=== PATIENT | female | born 1970 | race African-American/Black ===

== ENCOUNTER 2017-08-01 09:52 | Outpatient (CLI) | payer OTHER, SELFPAY ==
[2017-08-01 10:30] LABS: #Lymphocytes 2.2 thou/uL (1.20-3.40); #Monocytes 0.3 thou/uL (0.11-0.59); #Neutrophils 3.8 thou/uL (1.40-6.50); %Basophils 0.6 % (0.0-1.0); %Eosinophils 0.5 % (0.0-10.0); %Lymphocytes 34.3 % (21.0-51.0); %Monocytes 4.9 % (0.0-10.0); %Neutrophils 59.7 % (42.0-75.0); Hemoglobin 10.2 g/dL (12.0-16.0); Mean Corpuscular HGB CONC 31.6 g/dL (32.0-36.0); Mean Corpuscular Hemoglobin 24.7 pg (27.0-31.0); Mean Corpuscular Volume 78.2 fl (81.0-99.0); Mean Platelet Volume 10.5 fL (7.4-10.4); Platelet Count 163 thou/uL (130-400); RBC Distribution Width 14.6 % (11.5-14.5); Red Blood Cell (RBC) Count 4.14 mill/uL (4.20-5.40); White Blood Cell (WBC) Count 6.3 thou/uL (4.8-10.8)
[2017-08-01 10:46] LABS: Anion Gap 10 mmol/L (10-20); BUN (Urea Nitrogen) 10 mg/dL (7.0-18.7); Calc. Creatinine Clearance 0 mL/min (70-130); Calcium 9.3 mg/dL (7.8-10.44); Carbon Dioxide 25 mmol/L (22-29); Chloride 107 mmol/L (98-107); Estimated GFR-MDRD Greater than 90; Glucose 96 mg/dL (70-105); Potassium 3.8 mmol/L (3.5-5.1); Sodium 138 mmol/L (136-145)
== END 2017-08-01 09:53 | disposition home or self-care (01) ==
LOC: LABBT 09:52
PROVIDERS: ATTEND Surgery
DX: Z01.812 Encounter for preprocedural laboratory examination (principal); R22.2 Localized swelling, mass and lump, trunk
CPT/HCPCS: 80048; 85025

== ENCOUNTER 2017-08-03 06:53 | Day surgery (SDC) | payer OTHER ==
[2017-08-01 10:19] VITALS: BMI 33.0
[2017-08-03] MEDS ORDERED: Ketorolac Tromethamine 30 MG/ML VIAL ONE (07:59)
[2017-08-03] MEDS ORDERED: Bupivacaine 0.25% HCL 30 ML VIAL ONE (09:24)
[2017-08-03] MEDS ORDERED: Lidocaine 2% w/Epinephrine 1:200K 20 ML VIAL ONE (09:24)
[2017-08-03] MEDS ORDERED: Fentanyl 100 MCG/2 ML VIAL ONE ×2 (09:26→10:29)
[2017-08-03] MEDS ORDERED: Glycopyrrolate 0.2 MG/ML 5 ML SYRINGE ONE (16:13)
[2017-08-03] MEDS ORDERED: Lidocaine 1% PF 5 ML VIAL ONE (16:13)
[2017-08-03] MEDS ORDERED: PHENYLEPHRINE-NS 100 MCG/ML 10 ML SYRINGE ONE (16:13)
[2017-08-03] MEDS ORDERED: Ondansetron HCl/PF 4 MG/2 ML Vial ONE (16:13)
[2017-08-03] MEDS ORDERED: PROPOFOL 200 MG/20 ML VIAL ONE (16:13)
[2017-08-03] MEDS ORDERED: ePHEDrine/0.9% NaCl/PF SYRINGE 50 mg/10 ml ONE (16:13)
--- NOTE | 2017-08-05 10:08 | PDOC.OP ---
Operative Note - Operative Note Operative Note: PROCEDURE: Excision of left upper back subcutaneous mass consistent with lipoma DATE OF PROCEDURE: 08/03/2017 SURGEON: Lizbeth August M.D. PREOPERATIVE DIAGNOSES: Left upper back subcutaneous mass consistent with lipoma POSTOPERATIVE DIAGNOSIS: Left upper back subcutaneous mass consistent with lipoma HISTORY: Ms. Ny is a 46-year-old woman with a long-standing mass of the left upper back which has been slowly enlarging over the years. This is symptomatic and growing so excision has been recommended. Core biopsy did not show any evidence of malignancy. PROCEDURE IN DETAIL: After informed consent was obtained and appropriate preoperative antibiotics administered the patient was taken to the operating room she was placed in the supine position and general endotracheal anesthesia was infused. She was then moved to the prone position with appropriate padding and support of her extremities She was prepped and draped in the standard sterile fashion and local anesthesia infused to the skin and subcutaneous tissues surrounding the mass. A vertically oriented incision was made since that was the orientation of the mass. Dissection was carried down through the skin and subcutaneous tissues to the mass which was found to be a well encapsulated fatty appearing growth with some reactive fibrosis superficially. A plane was able to be developed between the mass and the overlying subcutaneous fat and the mass was mobilized off of the underlying muscle fibers. It appeared that the mass was likely subfascial as it was lying directly on the muscle fibers. The mass was completely excised and measured 12 x 9 x 14 cm. It was marked for orientation with a long lateral, short superior, and deep superficial sutures and sent to pathology. The wound was irrigated and hemostasis obtained using Bovie electrocautery. Due to the large potential space a CARISSA drain was placed into the subcutaneous pocket and secured to the skin inferiorly. The subcutaneous tissues were reapproximated with interrupted absorbable sutures. The skin was then closed with a running subcuticular Monocryl suture and Dermabond dressings were applied. The drain was placed to suction and a pressure dressing was placed. The patient was repositioned in supine position and extubated. She was taken to the recovery room in good condition. Estimated blood loss was minimal. There were no complications. Specimen is left upper back subcutaneous mass consistent with lipoma
== END 2017-08-03 14:10 | disposition home or self-care (01) ==
LOC: SDC 06:53
PROVIDERS: ATTEND Surgery
PROC: 0JB70ZZ Excision of Back Subcutaneous Tissue and Fascia, Open Approach (ICD-10-PCS; principal; 2017-08-03)
DX: D17.1 Benign lipomatous neoplasm of skin and subcutaneous tissue of trunk (principal); G89.29 Other chronic pain; M54.9 Dorsalgia, unspecified; F17.210 Nicotine dependence, cigarettes, uncomplicated; Z79.891 Long term (current) use of opiate analgesic; Z79.899 Other long term (current) drug therapy; Z98.891 History of uterine scar from previous surgery
CPT/HCPCS: 88304; J0131; J1885; J2001; J2405; J2704; J3010; S0020

== ENCOUNTER 2017-10-12 12:02 | Outpatient (CLI) | payer OTHER ==
--- NOTE | 2017-10-12 15:40 | MRI ---
MRI CERVICAL SPINE WITHOUT CONTRAST 10/12/17 HISTORY: Cervical radiculopathy. Pain. Pain radiating down both shoulders and arm for years, worsening on the left side. COMPARISON: None. TECHNIQUE: MRI of the cervical spine is performed without intravenous gadolinium administration. Multisequential , multiplanar imaging is performed. FINDINGS: Appropriate T1 marrow signal intensity of the cervical vertebrae. Vertebral body height is maintained . No fracture. Slight reversal of the cervical lordosis at C4-C5. The visualized brain parenchyma, ce rvicomedullary junction, distal cervical cord and the upper thoracic cord have a normal size and sign al intensity. There is T2 hyperintensity involving the cervical cord of the C4-C5 level. C2-C3: Minimal desiccation of the discs. There is minimal central disc osteophyte complex. No signifi cant central canal stenosis. Neural foramina are patent. C3-C4: Adequate hydration of the disc. There is a generalized disc osteophyte complex without signifi cant central canal stenosis. neural foramina are parent. C4-C5: Mild disc desiccation with mild loss of disc space height. There is a broad based disc osteoph yte complex with resultant severe central canal stenosis. T2 hyperintensity in the cord best demonstr ated on the sagittal images suggests cord malacia. Degenerative changes in the bilateral uncovertebra l joints results in moderate bilateral foraminal narrowing. C5-C6: Adequate disc hydration. There is a broad based disc osteophyte complex that abuts the thecal sac. Ventral subarachnoid space is partially effaced. Mild to moderate central canal stenosis. Neural foramina are patent bilaterally. C6-C7: No significant disc osteophyte complex. No significant central canal stenosis. Foramina are pa tent. C7-T1: No significant disc osteophyte complex. No significant central canal stenosis. Foramina are pa rent. IMPRESSION: 1. Degenerative changes of the cervical spine as above. There is significant central canal sten osis at C4-C5. 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 2. Additional stenosis at C5-C6. Varying degrees of foraminal stenosis as detailed above. POS: [facility]
--- NOTE | 2017-10-12 15:56 | MRI ---
MRI OF THE LUMBAR SPINE WITHOUT CONTRAST: 10/12/17 HISTORY: Chronic back pain radiating to both legs. Pain times many years. COMPARISON: None. TECHNIQUE: MRI of the lumbar spine is performed without intravenous gadolinium administration. Multisequential, multiplanar imaging is performed. FINDINGS: Appropriate T1 marrow signal intensity of the lumbar vertebrae. Lumbar spinal vertebral height is maricarmen ntained. No fracture. No significant STIR hyperintensity to suggest edema or ligamentous injury. Visualized solid organs are unremarkable. Symmetric signal intensity of the psoas muscles. The conus medullaris terminates at the superior aspect of the L1. T12-L1: Adequate disc hydration. No significant central canal stenosis or foraminal narrowing. L1-L2: Adequate disc hydration. Mild facet hypertrophy. No significant central canal stenosis. Neural foramina are patent bilaterally. L2-L3: Adequate disc hydration. No significant posterior disc abnormality. There is ligamentum flavu m thickening and facet hypertrophy with resultant mild central canal stenosis. Neural foramina are pa tent bilaterally. L3-L4: Desiccation with mild loss of disc space height. There is generalized disc bulge with a centra l, left paracentral superior disc extrusion. Ligamentum flavum thickening and facet hypertrophy are p resent. Fluid in both intra-articular facets joints results in moderate central canal stenosis. Mild bilateral foraminal narrowing. L4-L5: Desiccation with mild loss of disc space height. Generalized disc bulge with an inferior disc extrusion. Ligamentum flavum thickening and facet hypertrophy are present. Small amount of fluid in b oth facet joints. Moderate central canal stenosis. There is a subtle T2 and STIR hyperintensity on th e posterior margin of the disc suggesting an annular fissure which is associated with the aforementio veronica disc bulge. There is mild bilateral foraminal narrowing. L5-S1: Desiccation with mild loss of disc space height. Central/left subarticular disc protrusion. No significant stenosis of the thecal sac. Disc material abuts but does not obscure the traversing righ t S1 nerve root. Disc material abuts and slightly posteriorly displaces the traversing left S1 nerve root. Mild facet hypertrophy with a small amount of fluid present in both facet joints. No significan t foraminal narrowing. IMPRESSION: 1. Degenerative changes of the lumbar spine as above. Moderate central canal stenosis at L3-L4 a nd L4-L5. 2. Annular fissure at L4-L5. 3. Narrowing of the left subarticular zone at L5-S1 as described above. POS: [facility]
== END 2017-10-12 12:03 | disposition home or self-care (01) ==
LOC: SCSMRI 12:02
PROVIDERS: ATTEND Psychiatry & Neurology Neurology
DX: M47.22 Other spondylosis with radiculopathy, cervical region (principal); M48.02 Spinal stenosis, cervical region; M99.81 Other biomechanical lesions of cervical region; M47.896 Other spondylosis, lumbar region; Q05.7 Lumbar spina bifida without hydrocephalus; M48.07 Spinal stenosis, lumbosacral region
CPT/HCPCS: 72141; 72148

== ENCOUNTER 2018-11-07 13:05 | Outpatient (CLI) | payer OTHER ==
--- NOTE | 2018-11-07 15:25 | MRI ---
Cervical spine MRI: 11/07/2018 COMPARISON: 10/12/2017 HISTORY: Cervical radiculopathy, neck pain radiating down the left upper extremity with numbness TECHNIQUE: Multiplanar, multisequence MR imaging of the cervical spine provided without contrast FINDINGS: The sagittal STIR imaging demonstrates no focal area of osseous marrow edema. No significan t anterolisthesis or retrolisthesis noted within the cervical spine. C2-3: No significant central canal or neural foraminal stenosis C3-4: No significant central canal or neural foraminal stenosis. Minimal disc bulge with disc desicca tion present. C4-5: There is disc space narrowing and disc desiccation with disc bulge causing a moderate degree of central canal stenosis. Bilateral facet and uncovertebral osteophyte formation noted with mild/moderate bilateral neural foraminal stenosis. Findings are similar when compared to the prior ex amination. C5-6: There is disc space narrowing and disc desiccation with mild disc bulge and mild central canal stenosis. No significant neural foraminal stenosis. C6-7: Mild disc bulge. No significant central canal or neural foraminal stenosis. C7-T1: Unremarkable. There is a focal area of abnormal increased T2 signal intensity within the cervical cord, primarily t o the left of midline at the C4-5 level. IMPRESSION: Stable cervical spine MRI as detailed above. Degenerative changes are most significant at the C4-5 level with a stable area of increased T2 signal within the cervical cord suggesting myelomalacia. Transcribed Date/Time: 11/07/2018 4:06 PM
--- NOTE | 2018-11-07 15:32 | MRI ---
MRI of the lumbar spine without contrast: 11/07/2018 COMPARISON: 10/12/2017 HISTORY: Back pain with bilateral lower extremity radiculopathy TECHNIQUE: Multiplanar multisequence MR imaging of the lumbar spine obtained without contrast FINDINGS: The sagittal STIR imaging demonstrates no focal area of osseous marrow edema. On the basis of 5 lumbar type vertebral bodies, the conus medullaris terminates at the T12-L1 level. No significant anterolisthesis or retrolisthesis is seen within the lumbar spine. T12-L1: Bilateral facet hypertrophy with no significant central canal or neural foraminal stenosis. L1-2: Bilateral facet hypertrophy. No central canal or neural foraminal stenosis. L2-3: Bilateral facet hypertrophy and hypertrophy of the ligamentum flavum, left greater than right. No significant central canal or neural foraminal stenosis. L3-4: There is disc space narrowing and disc desiccation with disc bulge and a superimposed central d isc protrusion. There is associated mild superior migration. This causes moderate/severe central canal stenosis. There is prominent bilateral facet hypertrophy and hypertrophy of the ligamentum flav um with mild bilateral neural foraminal stenosis. L4-5: There is disc space narrowing and disc desiccation. Mild disc bulge and central annular tear. M ild/moderate central canal stenosis. Mild bilateral facet hypertrophy with no significant neural foraminal stenosis. L5-S1: There is disc space narrowing and mild disc bulge with disc desiccation and a central annular tear. No significant central canal stenosis. Mild left facet hypertrophy with no significant neural foraminal stenosis. Imaged retroperitoneal structures appear grossly unremarkable. There has been no significant interval change when compared to the prior exam. IMPRESSION: Multilevel lumbar spine degenerative change as detailed above, most significant at L3-4. Transcribed Date/Time: 11/07/2018 4:09 PM
== END 2018-11-07 13:06 | disposition home or self-care (01) ==
LOC: SCSMRI 13:05
PROVIDERS: ATTEND Psychiatry & Neurology Neurology
DX: M47.22 Other spondylosis with radiculopathy, cervical region (principal); M50.11 Cervical disc disorder with radiculopathy, high cervical region; M47.816 Spondylosis without myelopathy or radiculopathy, lumbar region; M48.02 Spinal stenosis, cervical region; M25.78 Osteophyte, vertebrae
CPT/HCPCS: 72141; 72148

== ENCOUNTER → 2019-02-01 | Day surgery (SDC) | payer OTHER ==
[2019-01-31 17:19] VITALS: BMI 31.4
[~2019-02-01] MED LIST: Sodium Chloride 0.9% 0 ML ONE; Thrombin 5000 UNITS/5 ML VIAL ONE
[2019-02-01 09:38] LABS: INR-International Normal Ratio 1.2; Prothrombin Time 15.4 SEC (12.0-14.7)
[2019-02-01 09:39] LABS: PTT 26.5 SEC (22.9-36.1)
[2019-02-01 09:53] LABS: Hemoglobin 6.6 g/dL (12.0-16.0); Mean Corpuscular HGB CONC 26.6 g/dL (32.0-36.0); Mean Corpuscular Volume 56.3 fL (78.0-98.0); Platelet Count 122 thou/uL (130-400); RBC Distribution Width 19.4 % (11.5-14.5); Red Blood Cell (RBC) Count 4.41 mill/uL (4.20-5.40); Reflex for Review?? YES
[2019-02-01 10:06] LABS: Anion Gap 12 mmol/L (10-20); BUN (Urea Nitrogen) 9 mg/dL (7.0-18.7); Calc. Creatinine Clearance 139 mL/min (70-130); Calcium 9.5 mg/dL (7.8-10.44); Carbon Dioxide 23 mmol/L (22-29); Chloride 106 mmol/L (98-107); Estimated GFR-MDRD Greater than 90; Glucose 92 mg/dL (70-105); Potassium 3.5 mmol/L (3.5-5.1); Sodium 137 mmol/L (136-145)
[2019-02-01 10:24] LABS: #Basophils 0.1 thou/uL (0.0-0.2); #Lymphocytes 1.8 thou/uL (1.20-3.40); #Monocytes 0.3 thou/uL (0.11-0.59); #Neutrophils 3.2 thou/uL (1.40-6.50); %Basophils 1.3 % (0.0-1.0); %Eosinophils 0.5 % (0.0-10.0); %Lymphocytes 32.2 % (21.0-51.0); %Monocytes 5.7 % (0.0-10.0); %Neutrophils 60.3 % (42.0-75.0); Band 1 % (5-11); Elliptocytes SLIGHT = 2-5 cells (100X) (0-1/hpf); Eosinophils 1 % (0-10); Hypochromia MODERATE=16-30 cells (100X) (0-5/hpf); Large Platelets MODERATE; Lymphocytes 33 % (21-51); MDiff Complete? YES; Microcytosis MARKED = >30 cells (100X) (0-5/hpf); Monocytes 8 % (0-10); Neutrophil 56 % (42-75); Ovalocytes SLIGHT = 2-5 cells (100X) (0-1/hpf); Platelet Morphology Comment Appears Decreased; Polychromasia MODERATE = 3-4 cells (100X) (0-2/hpf); Tear Drops SLIGHT = 2-5 cells (100X) (0-1/hpf)
== END ==
LOC: SDC 08:19
PROVIDERS: ATTEND Surgery
DX: M48.02 Spinal stenosis, cervical region (principal); M54.12 Radiculopathy, cervical region; F17.200 Nicotine dependence, unspecified, uncomplicated; Z53.8 Procedure and treatment not carried out for other reasons
CPT/HCPCS: 80048; 85025; 85060; 85610; 85730; 93005; 93010; J0690; J3490